=== PATIENT | female | born 1990 | race Caucasian/White ===

== ENCOUNTER 2024-04-05 11:17 | Observation (INO) | payer BC ==
[~2024-04-05] VITALS: Ht 162.6 cm; Wt 80.8 kg
[2024-04-05] VITALS (11 sets, daily range): BP systolic 93–102; BP diastolic 56–65; PULSE 80–97; TEMP 97.7–98.2
--- NOTE | 2024-04-05 11:54 | NUR ---
Pt arrived to medical floor by EMS. Report received from WALLY Andujar from [facility] ED. Admission intake completed by WALLY Martinez. Admission assessment completed. VSS. NPO status in place. Medications, pharmacy, and allergies reviewed with pt. INT to Rt AC patent with no swelling, redness, or drainage. Oriented pt to room, call light, and bathroom. Pt denies pain at this time rating 0/10. Pt ambulates in room independently with no complications. Pt has no request at this time. Call light within reach.
[2024-04-05] MEDS ORDERED: REGLAN 10MG10 MG/TAB PO (11:55)
[2024-04-05] MEDS ORDERED: TYLENOL 500MG500 MG PO (11:56)
[2024-04-05] MEDS ORDERED: ZOFRAN 4MG T4 MG/TAB PO (11:56)
[2024-04-05] MEDS ORDERED: WEGOVY1 MG/0.5 M SQ (11:58)
[2024-04-05] MEDS ORDERED: LR 1,000 ML IV SCH (13:00)
[2024-04-05] MEDS ORDERED: Ondansetron 4 MG/2 ML VIAL IV PRN ×2 (13:00→18:30)
[2024-04-05] MEDS ORDERED: Morphine 4 MG/ML VIAL IV PRN (13:00)
[2024-04-05] MEDS ORDERED: Famotidine 20 MG TAB PO SCH (14:00)
[2024-04-05] MEDS ORDERED: Meclizine 25 MG TAB PO SCH (14:00)
[2024-04-05] MEDS ORDERED: fentaNYL 50 MCG/ML 5 ML VIAL ONE (17:50)
[2024-04-05] MEDS ORDERED: Rocuronium 50 MG/5 ML Multi-Dose VIAL ONE (17:50)
[2024-04-05] MEDS ORDERED: dexAMETHasone 10 MG/ML VIAL ONE (18:02)
[2024-04-05] MEDS ORDERED: Ondansetron 4 MG/2 ML VIAL ONE (18:02)
[2024-04-05] MEDS ORDERED: Ketorolac 30 MG/ML VIAL ONE (18:02)
[2024-04-05] MEDS ORDERED: Glycopyrrolate 0.2 MG/ML 1 ML VIAL ONE (18:09)
[2024-04-05] MEDS ORDERED: Labetalol 100 MG/20 ML Multi-Dose VIAL ONE (18:23)
[2024-04-05] MEDS ORDERED: fentaNYL 50 MCG/ML 1 ML SYRINGE/VIAL [PACU/SDC ONLY] IV PRN (18:30)
[2024-04-05] MEDS ORDERED: Meperidine 50 MG/ML 1 ML VIAL IV PRN (18:30)
[2024-04-05] MEDS ORDERED: HYDROmorphone 1 MG/1 ML SYRINGE [PACU/SDC ONLY] IV PRN (18:30)
[2024-04-05] MEDS ORDERED: Naloxone 0.4 MG/ML VIAL ONE (18:41)
[2024-04-05] MEDS ORDERED: NORCO 325 MG-51 TAB PO (18:43)
--- NOTE | 2024-04-05 19:40 | NUR ---
pt back in room from procedure. vss. pt rates pain a /10. x3 lap sites are cdi. no needs at this time. call light in reach.
[2024-04-05] MEDS ORDERED: Home HYDROcodone/Acetaminophen 5/325 MG #4 TABS/PACK PO ONE (21:00)
--- NOTE | 2024-04-05 21:02 | NUR ---
patient met discharge criteria. vss. pain controlled. dr garcia ok with patient discharging this evening. INT discontinued. discharge instructions given to pt as well as take home pack for [place]. no other needs.
--- NOTE | 2024-04-05 21:22 | NUR ---
pt escorted to personal vehicle by wheelchair.
== END 2024-04-05 21:22 | disposition home or self-care (01) ==
LOC: MEDICAL 11:17
PROVIDERS: ADMIT Surgery
DX: K80.00 Calculus of gallbladder with acute cholecystitis without obstruction (principal)
CPT/HCPCS: G0378; G0379; J0690; J1100; J1885; J1920; J2310; J2405; J2704; J3010; J7120